=== PATIENT | male | born 1980 | race Hispanic/Latino ===

== ENCOUNTER 2018-06-15 18:48 | Emergency (ER) | payer OTHER ==
[2018-06-15 19:08] LABS: BASOPHILS % (AUTO) 0.6 % (0.0-5.0); EOSINOPHILS % (AUTO) 1.1 % (0.0-8.0); HEMATOCRIT 43.5 % (42-54); LYMPHOCYTES % (AUTO) 42.7 % (21.0-51.0); MEAN CORPUSCULAR HEMOGLOBIN 28.7 pg (27.0-33.0); MEAN CORPUSCULAR HGB CONC 33.6 g/dL (32.0-36.0); MEAN CORPUSCULAR VOLUME 85.4 fL (79-99); MONOCYTES % (AUTO) 8.4 % (3.0-13.0); NEUTROPHILS % (AUTO) 47.2 % (40.0-77.0); NUCLEATED RED BLOOD CELLS 0.1 % (0.0-0.19); PLATELET COUNT (AUTO) 226 K/uL (130-400); RED BLOOD CELL COUNT(AUTO) 5.09 MIL/uL (4.50-6.20); RED CELL DISTRIBUTION WIDTH 13.1 % (11.0-15.5)
[2018-06-15 19:28] LABS: CREATININE 1.2 mg/dL (0.5-1.5); POTASSIUM 3.8 mmol/L (3.5-5.1)
[2018-06-15 19:33] LABS: ALBUMIN 4.1 g/dL (3.5-5.0); BILIRUBIN,TOTAL 0.6 mg/dL (0.2-1.0); TOTAL PROTEIN, SERUM 8.4 g/dL (6.0-8.3)
[2018-06-15 19:36] LABS: INR 0.95 (0.85-1.15); PARTIAL THROMBOPLASTIN TIME 27.9 SEC (26.3-35.5)
[2018-06-15] MEDS ORDERED: METHYLPREDNISOLONE SOD SUCC 125MG/2ML VIAL ONE (19:45)
== END 2018-06-15 20:12 | disposition home or self-care (01) ==
LOC: EDH 18:48
DX: G51.0 Bell's palsy (principal); Z98.890 Other specified postprocedural states
CPT/HCPCS: 36415; 70450; 80053; 82550; 82948; 84484; 85025; 85610; 85730; 96374; 99285; J2930

== ENCOUNTER 2021-04-01 09:40 | Emergency (ER) | payer OTHER ==
[~2021-04-01] VITALS: Ht 167.6 cm; Wt 121.1 kg
[2021-04-01 09:43] VITALS: BP 126/80
[2021-04-01] MEDS ORDERED: NAPR-1180 PO (11:45)
[2021-04-01] MEDS ORDERED: AMOX-429 PO (11:45)
[2021-04-01] MEDS ORDERED: KETOROLAC 60 MG VIAL (30MG/ML) IM SCH (12:00)
[2021-04-01 12:13] VITALS: BP 130/75
== END 2021-04-01 12:23 | disposition home or self-care (01) ==
LOC: EDH 09:40
DX: K04.7 Periapical abscess without sinus (principal); K02.9 Dental caries, unspecified
CPT/HCPCS: 96372; 99283; J1885

== ENCOUNTER 2023-05-09 13:48 | Emergency (ER) | payer OTHER ==
[~2023-05-09] VITALS: Ht 167.6 cm; Wt 127.0 kg
[~2023-05-09 13:48] MED LIST: AMOX-429 PO; NAPR-1180 PO
[2023-05-09 13:49] VITALS: BP 171/106; PULSE 96; RESP 16
[2023-05-09] MEDS ORDERED: BACITRACIN 1 EACH PACKET TP ONE (14:30)
[2023-05-09] MEDS ORDERED: DIPH,PERTUSS(ACELL),TET VAC/PF 0.5 ML VIAL IM ONE (14:30)
[2023-05-09] MEDS ORDERED: AMOX1TAB16 PO (14:43)
== END 2023-05-09 14:53 | disposition home or self-care (01) ==
LOC: EDH 13:48
DX: S71.131A Puncture wound without foreign body, right thigh, initial encounter (principal); Z79.899 Other long term (current) drug therapy; Z98.890 Other specified postprocedural states; W54.0XXA Bitten by dog, initial encounter; Y93.89 Activity, other specified; Y92.89 Other specified places as the place of occurrence of the external cause; Y99.8 Other external cause status
CPT/HCPCS: 90471; 90715